=== PATIENT | male | born 1995 | race African-American/Black ===

== ENCOUNTER 2017-01-10 21:55 | Emergency (ER) | payer SELFPAY ==
[~2017-01-10] VITALS: Ht 182.9 cm; Wt 86.2 kg
[2017-01-10 22:03] VITALS: BP 136/66
--- NOTE | 2017-01-10 22:35 | PHYS DOC ---
Past Medical History Past Medical History: No Pertinent History Past Surgical History: No Surgical History Alcohol Use: None Drug Use: None Adult General Chief Complaint Chief Complaint: ANKLE PROBLEM HPI HPI Patient is a 21 year old male presents emergency department stating that he's been having bilateral ankle pain and discomfort for the last 2 days. He states that he has had increased discomfort throughout the day. Patient denies any rubbing or any shoe issues. He denies any excessive ambulation. Patient denies taking anything for pain and discomfort. Patient denies any swelling denies any injury. Review of Systems Review of Systems Constitutional: Denies fever or chills [] Eyes: Denies change in visual acuity, redness, or eye pain [] HENT: Denies nasal congestion or sore throat [] Respiratory: Denies cough or shortness of breath [] Cardiovascular: No additional information not addressed in HPI [] GI: Denies abdominal pain, nausea, vomiting, bloody stools or diarrhea [] : Denies dysuria or hematuria [] Musculoskeletal: Denies back pain complain of bilateral ankle pain Integument: Denies rash or skin lesions [] Neurologic: Denies headache, focal weakness or sensory changes [] Endocrine: Denies polyuria or polydipsia [] Allergies Allergies Allergies Coded Allergies Type Severity Reaction Last Updated Verified No Known Drug Allergies 01/10/17 No Physical Exam Physical Exam Constitutional: Well developed, well nourished, no acute distress, non-toxic appearance. [] HENT: Normocephalic, atraumatic, bilateral external ears normal, oropharynx moist, no oral exudates, nose normal. [] Eyes: PERRLA, EOMI, conjunctiva normal, no discharge. [] Neck: Normal range of motion, no tenderness, supple, no stridor. [] Cardiovascular:Heart rate regular rhythm, no murmur [] Lungs & Thorax: Bilateral breath sounds clear to auscultation [] Skin: Warm, dry, no erythema, no rash. Bilateral medial ankles appear to have a reddened darkened area that appears to been rubbed on shoes. No open skin wounds noted no tenderness noted over the bony area. Back: No tenderness Extremities: No tenderness, no cyanosis, no clubbing, ROM intact, no edema. [] Neurologic: Alert and oriented X 3, normal motor function, normal sensory function, no focal deficits noted. [] Psychologic: Affect normal, judgement normal, mood normal. [] Current Patient Data Vital Signs Vital Signs Date Time Temp Pulse Resp B/P (MAP) Pulse Ox O2 Delivery O2 Flow Rate FiO2 01/10/17 22:03 98.0 95 16 100 Room Air 98.0 EKG EKG [] Radiology/Procedures Radiology/Procedures [] Course & Med Decision Making Course & Med Decision Making Pertinent Labs and Imaging studies reviewed. (See chart for details) X-rays of bilateral ankles were negative for any bony abnormalities. Patient was encouraged to use Tylenol or ibuprofen for pain and discomfort. Also recommended ice packs on 20 minutes off 20 minutes several times a day. Elevation as much as possible. His provided with orthopedic name and number to follow up with if he continues to have pain and discomfort. Signs and symptoms to return back to emergency department as been provided. [] Dragon Disclaimer Dragon Disclaimer This electronic medical record was generated, in whole or in part, using a voice recognition dictation system. Departure Departure Impression: Primary Impression: Bilateral ankle pain Disposition: 01 HOME, SELF-CARE Condition: STABLE Referrals: NO PCP (PCP) DAMARIS BREWER MD Patient Instructions: Ankle Pain Additional Instructions: Activity as tolerated. Ice packs on 20 minutes off 20 minutes several times a day. Tylenol or ibuprofen for pain or discomfort. Follow-up with orthopedic as needed in the next week. Return back to emergency department for signs and symptoms of become worse. TONY WEBBER APRN Jan 10, 2017 22:35
--- NOTE | 2017-01-11 07:31 | RAD ---
Three-view study of both ankles History: Bilateral ankle pain for one day. No acute injury. Left ankle: No acute fracture or dislocation or osteolytic process is seen. The mortise ankle joint is intact. No significant arthritic change is evident. Right ankle: No acute fracture or dislocation or osteolytic process is seen. The mortise ankle joint is intact. No significant arthritic change is seen. IMPRESSION: No significant osseous abnormality is evident.
== END 2017-01-10 22:56 | disposition home or self-care (01) ==
LOC: ER 21:55
DX: M25.571 Pain in right ankle and joints of right foot (principal); M25.572 Pain in left ankle and joints of left foot
CPT/HCPCS: 73610; 99284